=== PATIENT | male | born 1990 | race African-American/Black ===

== ENCOUNTER 2021-01-14 06:22 | Emergency (ER) | payer SELFPAY ==
[~2021-01-14] VITALS: Ht 175.3 cm; Wt 63.5 kg
--- NOTE | 2021-01-14 06:35 | NUR ---
URINE SPECIMEN COLLECTED AND SENT TO LAB.
--- NOTE | 2021-01-14 06:45 | NUR ---
PATIENT BIBS FOR C/O ONGOING N/V FOR THE PAST 2 DAYS, WITH RLQ ABD PAIN. PATIENT STATED LBM 3 DAYS AGO. PATIENT ALSO C/O PENILE DISCHARGES REQUESTING STD CHECK. PATIENT A/O X 4, RR EVEN AND UNLABORED, NO SOB NOTED. PATIENT CONNECTED MONITORS.
[2021-01-14] MEDS ORDERED: CEFTRIAXONE 500 MG VIAL ONE (06:48)
[2021-01-14] MEDS ORDERED: ONDANSETRON HCL/PF 4 MG/2 ML VIAL ONE (06:48)
[2021-01-14] MEDS ORDERED: DOXYCYCLINE HYCLATE (100 MG) 100 MG TABLET ONE (06:49)
[2021-01-14] MEDS ORDERED: IV NS 0.9% 1,000 ML BAG IV ONE (07:00)
[2021-01-14] MEDS ORDERED: DOXYCYCLINE HYCLATE (100 MG) 100 MG TABLET PO ONE (07:00)
[2021-01-14] MEDS ORDERED: ONDANSETRON HCL/PF 4 MG/2 ML VIAL IVP ONE (07:00)
[2021-01-14] MEDS ORDERED: CEFTRIAXONE 500 MG VIAL IM ONE (07:00)
--- NOTE | 2021-01-14 07:11 | NUR ---
RECEIVED REPORT FROM LOLA SOLIS FOR [facility]. PT IS AAOX4, NOT IN RESPIRATORY DISTRESS, V/S STABLE, KEPT RESTED AND COMFORTABLE. WILL CONTINUE TO MONITOR.
[2021-01-14 07:17] LABS: BILIRUBIN,URINE SMALL (NEGATIVE); COLOR,URINE YELLOW (YELLOW); LEUKOCYTE ESTERASE ,URINE NEGATIVE (NEGATIVE); NITRITE, URINE NEGATIVE (NEGATIVE); PH,URINE 6.5 (5.0-8.0); PROTEIN,URINE 30 mg/dl (NEGATIVE); UGLUCOSE NEGATIVE (NEGATIVE)
[2021-01-14 07:27] LABS: BASOPHILS % (AUTO) 0.4 % (0.0-2.0); HEMATOCRIT 48 % (39-51); HEMOGLOBIN 15.6 g/dL (13.5-17.5); LYMPHOCYTES # (AUTO) 0.7 K/uL (0.8-4.8); LYMPHOCYTES % (AUTO) 16.1 % (20.0-44.0); MEAN CORPUSCULAR HGB CONC 33 g/dl (31.0-36.0); MEAN CORPUSCULAR VOLUME 88 fL (80-96); MONOCYTES # (AUTO) 0.5 K/uL (0.1-1.30); MONOCYTES % (AUTO) 11.6 % (2.0-12.0); NEUTROPHILS # (AUTO) 3.3 K/uL (1.8-8.9); NEUTROPHILS % (AUTO) 71.9 % (43.0-81.0); PLATELET COUNT (AUTO) 253 K/uL (150-450); RED BLOOD CELL COUNT(AUTO) 5.44 MIL/uL (4.5-6.0); WHITE BLOOD COUNT (AUTO) 4.5 K/uL (4.3-11.0)
[2021-01-14 08:24] LABS: CALCIUM, SERUM 9.8 mg/dL (8.5-10.1); CREATININE 1.2 mg/dL (0.6-1.3); POTASSIUM 3.7 mmol/L (3.5-5.1)
[2021-01-14 08:30] LABS: ALBUMIN 4.4 g/dL (3.4-5.0); BILIRUBIN,DIRECT 0.3 mg/dL (0.0-0.2); BILIRUBIN,TOTAL 1.2 mg/dL (0.2-1.0); TOTAL PROTEIN, SERUM 8.4 g/dL (6.4-8.2)
[2021-01-14] MEDS ORDERED: ONDA4TAB5 PO (08:40)
[2021-01-14] MEDS ORDERED: DOXY-326 PO (08:41)
--- NOTE | 2021-01-14 08:49 | NUR ---
IV removed. Catheter intact and site benign. Pressure and 4x4 applied to site. No bleeding noted. Patient discharged to home in stable condition. Written and verbal after care instructions given. Patient verbalizes understanding of instruction.
[2021-01-14 08:50] VITALS: BP 121/73
[2021-01-14 09:49] LABS: BACTERIA,URINE Rare /HPF (None Seen); MUCUS,URINE Moderate /LPF (None Seen); RBC,URINE NONE SEEN /HPF (0-2); SQUAMOUS EPITHELIAL CELL,UR Rare /HPF (None Seen); WBC,URINE 0-2 /HPF (0-3)
== END 2021-01-14 08:50 | disposition home or self-care (01) ==
LOC: ER 06:26
DX: R11.2 Nausea with vomiting, unspecified (principal); R10.31 Right lower quadrant pain; Z60.2 Problems related to living alone; Z79.899 Other long term (current) drug therapy
CPT/HCPCS: 36415; 80048; 80076; 81001; 83690; 85025; 87491; 87591; 96361; 96372; 96374; 99284; J0696; J2405